=== PATIENT | female | born 1960 | race Caucasian/White ===

== ENCOUNTER 2018-02-06 07:33 | Day surgery (SDC) | payer BC, SELFPAY ==
[2018-02-06 07:52] VITALS: BP 117/79; PULSE 82; RESP 16; TEMP 36; O2SAT 96
[2018-02-06] MEDS: Lactated Ringers 1,000 ML 80 ML IV (07:58)
--- NOTE | 2018-02-06 09:27 | PDOC.DSDIS_ITS ---
Discharge Plan Disposition Patient Disposition: HOME Condition: Good Discharge Details Reason For Visit: Colon Cancer Screening Attending Provider: Bianka Horowitz Primary Care Provider: Dona Coley Home Meds and New Rx's Prescriptions: Continue levothyroxine 150 MCG tablet 150 mcg PO DAILY RF: 0 cholecalciferol (vitamin D3) 50,000 UNIT capsule 50,000 unit PO .WEEKLY RF: 0 estradiol [Vagifem] 10 MCG tablet 10 mcg VG HS twice weekly Qty: 24 RF: 5 Discharge Instructions Instructions: Colonoscopy (DC) Additional Instructions: Findings: Normal colonoscopy Follow up: 10 years Please call if you develop: fevers >101.5 Nausea or Vomiting Abdominal pain that is not transient DAY SURGERY UNIT POST COLONOSCOPY INSTRUCTIONS 1. Because there will be medication in your system for the next 24 hours, you may feel a little sleepy. Your coordination will be affected. Therefore: a. Do not drive or operate dangerous equipment for 24 hours. b. Do not drink alcohol beverages for 24 hours (not even beer). c. Plan to go home and rest for the day. 2. Generally there are no restrictions on your activity after a day or so has gone by, but you may feel a bit fatigued for a few days. 3 After you arrive home you may have a light meal and return to a normal diet as you can tolerate it without feeling sick to your stomach. 4. After surgery, you may feel pain or discomfort. This should be only transient , but if it persists please contact your doctor. 5. If there are any questions regarding the findings of your procedure, please feel free to contact your doctor. 6. If you are unable to contact your doctor with a problem, contact the hospital at [phone]. 7. Continue all your regular medications unless directed otherwise. I understand the above instructions and have no questions. Signature of Patient or Responsible Adult Escort Date/Time Name of Responsible Adult Escort Signature of Nurse Date/Time Activity:: Activity as Tolerated Diet:: As Tolerated DS: Diagnosis Discharge Diagnosis (1) S/P colonoscopy: Status: Acute
--- NOTE | 2018-02-06 09:27 | COLE_ITS ---
Date of service: 02/06/18 Time of Service: : Colonoscopy Report Date of procedure: 02/06/18 Pre-op diagnosis general: Colon Cancer screening Post-op diagnosis procedure note: same Procedure: Colonoscopy Surgeon: Bianka Horowitz Anesthesia proc note operative: MAC (Serina Barahona, INSTRUCTOR ADJUNCT PHARMACY TECHNICIAN / ASA 2) Estimated blood loss (mL): 0 Pathology: none sent Complications: None Disposition: same day Indications: Mrs. River is a pleasant 57 year old female seen in the office for her first screening colonoscopy. Risks, benefits and complications have been reviewed. Complications include but are not limited to bleeding, pain, perforation, missed small lesion/polyp, sore throat, aspiration and adverse reaction to the medications. Questions were entertained and answered to their satisfaction and they wished to proceed. No guarantees were given or implied. Prep: Miralax/Dulcolax Procedure Start Time: 33 Procedure End Time: :51 Retraction Time: 12 minutes Findings: Normal Colon Procedure Description: After informed consent was obtained the patient was taken to the procedure room and placed in a left decubitous position. Monitors were applied and a time out was done. The patients name, date of , procedure, allergies to medications and metal in their body was reviewed. The patient was then sedated. Once sedated and comfortable a rectal exam was done. External exam was normal. Internal exam revealed a normal sphincter tone and no palpable masses. The scope was then introduced and retro-flexed. No internal hemorrhoids were identified. The scope was then advanced to the cecum without difficulty. The TI and appendiceal orifice were identified. The prep was good. The scope was then slowly retracted over 12 minutes back into the rectum. The scope was removed and the patient was woken up and taken back to Same day surgery in stable condition. The patient tolerated the procedure well and there were no immediate complications. Follow up: The patient should follow up in 10 years unless they develop changes in bowel habits or other new gastrointestinal complaints.
[2018-02-06 10:30] VITALS: BP 117/70; PULSE 74; RESP 14; TEMP 36.5; O2SAT 95
== END 2018-02-06 11:00 | disposition home or self-care (01) ==
PROVIDERS: PCP Nurse Practitioner; Visit Provider Surgery
PROC: 0DJD8ZZ Inspection of Lower Intestinal Tract, Via Natural or Artificial Opening Endoscopic (ICD-10-PCS; CPT 45378; principal; 2018-02-06 09:15)
DX: Z12.11 Encounter for screening for malignant neoplasm of colon (principal)
CPT/HCPCS: 45378

== ENCOUNTER 2020-02-06 01:55 | Outpatient (CLI) | payer BC, SELFPAY ==
--- NOTE | 2020-02-06 08:30 | DI.MAMMO_ITS ---
EXAM: MG MAMMO SCREENING CLINICAL HISTORY: screening. TECHNIQUE: Bilateral full field digital CC and MLO mammographic images were obtained with 3D tomosyn thesis and utilizing computer aided detection (CAD). COMPARISON: Prior mammograms dating back to 2014, the most recent being August 2017. FINDINGS: Well-defined benign-appearing nodular density in the upper-outer quadrant of the right breast is unch anged from 2015. Probably benign lymph node. No new right breast findings. In the left breast there is a lateral of center well-defined noncalcified nodule noted which measures 4 x 3 millimeters and is located 6 centimetres in from the nipple on the MLO view.. Less evident on the CC view. This nodule was not evident on the most recent mammogram of August 2017. There is no no architectural distortion or skin thickening-traction IMPRESSION: 1. In the left breast there is a new well-defined noncalcified 4 x 3 millimeter nodule best seen on t he 3D MLO view 6 centimetres in from the nipple. Breast ultrasound recommended to determine if this is solid or cystic. 2. No new right breast findings BI-RADS Category 0 - Assessment Incomplete: Need additional imaging evaluation Breast Density - Category B - Scattered areas of fibroglandular density Breast density Category C or D implies that the patient has dense breast tissue. Dense breast tissue can make it harder to find cancer on a mammogram. Dense breast tissue is also associated with an incr eased risk of breast cancer. This information about the result of the mammogram report was provided to the patient to raise their awareness. Use this report when you speak with the patient about their risks for breast cancer, which includes their family history. At that time, you may recommend additional screening tests (Ultrasoun d or MRI) as these tests may add significant information. A negative radiographic report should not delay biopsy if a dominant or clinically suspicious mass is present. Up to ten percent of cancers are not identified on mammography. A negative report may reinforce clinical impression. Adenosis and dense breasts may obscure an underlying neoplasm. False positive reports average 6 to 10%. Patient will receive a letter notifying them of these results.
== END 2020-02-06 02:15 ==
PROVIDERS: PCP Nurse Practitioner; Visit Provider Nurse Practitioner Family
DX: Z12.31 Encounter for screening mammogram for malignant neoplasm of breast (principal); N63.20 Unspecified lump in the left breast, unspecified quadrant
CPT/HCPCS: 77063; 77067

== ENCOUNTER 2020-02-14 04:17 | Outpatient (CLI) | payer BC, SELFPAY ==
--- NOTE | 2020-02-14 | DI.US_ITS ---
EXAM: US BREAST LT LIMITED CLINICAL HISTORY: F/U MAMMO, LT BREAST NODULE TECHNIQUE: Ultrasound right breast performed using standard protocol. COMPARISON: MG Screening Bilat Mammo from 03/20/2014 MG Screening Bilat Mammo from 09/06/2017 MG MG MAMMO SCREENING from 02/06/2020 FINDINGS: All 4 quadrants of the left breast were evaluated sonographically including the left axilla and retro areolar areas. There is an ovoid hypoechoic 0.4 cm nodule at the 2 o'clock position of the left [address] which appears to correspond to the mammographic abnormality. This likely reflects a benign lesion such as a small fibroadenoma. Mammographically this nodule can be seen on mammograms dating 2014 an 2017 and is unchanged. Note is made of a sonographically benign-appearing lymph node in the left a xilla measuring 0.5 cm. IMPRESSION: No evidence for malignancy. Yearly mammography is recommended. Findings were discussed with the pat ient on the date of the examination BI-RADS Category 2 - Benign Findings DATA REPOSITORY:
== END 2020-02-14 04:37 ==
PROVIDERS: PCP Nurse Practitioner; Visit Provider Nurse Practitioner Family
DX: R92.8 Other abnormal and inconclusive findings on diagnostic imaging of breast (principal)
CPT/HCPCS: 76642

== ENCOUNTER 2020-04-29 04:02 | Outpatient (CLI) | payer BC, SELFPAY ==
[2020-04-29 08:44] LABS: Hemoglobin A1C 5.3 % (<5.7)
[2020-04-29 09:34] LABS: Anion Gap 7.7 mmol/L (3-11); BUN 17 mg/dL (7-18); CO2 28.3 mmol/L (21.0-32.0); CREATININE 0.6 mg/dL (0.55-1.02); Calcium 9.1 mg/dL (8.5-10.1); Calculated LDL 111 mg/dL (<100); Chloride 104 mmol/L (98-107); Cholesterol 190 mg/dL (<200); Glucose 93 mg/dL (74-106); HDL Cholesterol 67 mg/dL (40-60); Potassium 4.2 mmol/L (3.5-5.1); Sodium 140 mmol/L (136-145); TSH 0.18 uIU/mL (0.36-3.74); Triglyceride 62 mg/dL (<150)
[2020-04-30 05:15] LABS: Vitamin D 25 Total 71.7 ng/ml (30-100)
== END 2020-04-29 04:03 | disposition home or self-care (01) ==
LOC: LBO 04:02
PROVIDERS: PCP Nurse Practitioner; Visit Provider Internal Medicine Endocrinology, Diabetes & Metabolism
DX: E06.3 Autoimmune thyroiditis (principal); E55.9 Vitamin D deficiency, unspecified; M85.80 Other specified disorders of bone density and structure, unspecified site
CPT/HCPCS: 36415; 80048; 80061; 82306; 83036; 84443

== ENCOUNTER 2020-07-19 16:53 | Emergency (ER) | payer BC, SELFPAY ==
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
[2020-07-19 16:58] VITALS: BP 128/73; PULSE 81; RESP 16; TEMP 36.4; O2SAT 96
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
[2020-07-19] MEDS: HYDROcodone 5/Acetaminophen 325 TAB PO (17:24)
[2020-07-19] MEDS: Ibuprofen 600 MG TAB PO (17:25)
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
== END 2020-07-19 19:03 | disposition home or self-care (01) ==
PROVIDERS: Emergency Provider Physician Assistant; PCP Nurse Practitioner
DX: S09.90XA Unspecified injury of head, initial encounter (principal); S52.591A Other fractures of lower end of right radius, initial encounter for closed fracture; S01.511A Laceration without foreign body of lip, initial encounter; S01.81XA Laceration without foreign body of other part of head, initial encounter; S80.212A Abrasion, left knee, initial encounter; S60.512A Abrasion of left hand, initial encounter; V18.0XXA Pedal cycle driver injured in noncollision transport accident in nontraffic accident, initial encounter; Y93.55 Activity, bike riding
CPT/HCPCS: 90471; 99281; 73110

== ENCOUNTER 2020-08-04 09:28 | Outpatient (CLI) | payer BC, SELFPAY ==
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
--- NOTE | 2020-08-04 09:15 | DI.RAD_ITS ---
Exam(s) XR FINGER RT LITTLE EXAM: XR FINGER RT LITTLE CLINICAL HISTORY: LITTLE FINGER PAIN. TECHNIQUE: 2D digital imaging was performed. COMPARISON: No exams were available for comparison FINDINGS: BONES: No acute fracture is present. No bony destructive lesion is seen. JOINTS: No dislocation present. SOFT TISSUE: Normal. IMPRESSION: No evidence of acute fracture, dislocation, or subluxation. DATA REPOSITORY: RADIATION DOSE DELIVERED:
== END 2020-08-04 09:29 | disposition home or self-care (01) ==
LOC: DIORS 09:28
PROVIDERS: PCP Nurse Practitioner; Referring Provider Nurse Practitioner; Visit Provider Physician Assistant
DX: M79.644 Pain in right finger(s) (principal); M25.531 Pain in right wrist; S52.591D Other fractures of lower end of right radius, subsequent encounter for closed fracture with routine healing
CPT/HCPCS: 73110; 73140

== ENCOUNTER 2020-09-02 10:26 | Outpatient (CLI) | payer BC, SELFPAY ==
--- NOTE | 2020-09-02 10:00 | DI.RAD_ITS ---
Exam(s) XR WRIST RT COMPLETE EXAM: XR WRIST RT COMPLETE CLINICAL HISTORY: follow up. TECHNIQUE: 2D digital imaging was performed. COMPARISON: CR,XR XR WRIST RT COMPLETE from 07/19/2020 CR,XR XR WRIST RT COMPLETE from 07/19/2020 CR XR WRIST RT COMPLETE from 08/04/2020 FINDINGS: BONES: The lucency on the articular surface of the distal radius is less well visualized than on the prior examinations. No new fracture or dislocation is seen. No bony destructive lesion is seen. JOINTS: The carpal bones are normally aligned. SOFT TISSUE: Normal. IMPRESSION: DATA REPOSITORY: RADIATION DOSE DELIVERED:
== END 2020-09-02 10:27 | disposition home or self-care (01) ==
LOC: DIORS 10:26
PROVIDERS: PCP Nurse Practitioner; Referring Provider Nurse Practitioner; Visit Provider Physician Assistant Surgical
DX: S62.101D Fracture of unspecified carpal bone, right wrist, subsequent encounter for fracture with routine healing (principal); X58.XXXD Exposure to other specified factors, subsequent encounter
CPT/HCPCS: 73110

== ENCOUNTER 2021-02-15 00:28 | Outpatient (CLI) | payer BC, SELFPAY ==
--- NOTE | 2021-02-15 12:30 | DI.MAMMO_ITS ---
Exam(s) MAMMO SCREENING EXAM: MAMMO SCREENING CLINICAL HISTORY: SCREENING FOR BREAST CANCER Z12.39 TECHNIQUE: Mammograms were interpreted according to the usual protocol including computer analysis w [employer] CAD system, tomosynthesis and C-view imaging. COMPARISON: 2014 through 2019 FINDINGS: The breasts are composed of scattered fibroglandular densities, Breast Density category B. No suspicious masses or suspicious microcalcifications are seen. No skin thickening or abnormal axillary lymph nodes are seen. There has been no significant change from prior exams. IMPRESSION: BI-RADS Category 1, Negative mammogram Yearly screening mammography is recommended. Breast Density - Category B, scattered fibroglandular densities. A negative radiographic report should not delay biopsy if a dominant or clinically suspicious mass is present. Up to ten percent of cancers are not identified on mammography. A negative report may reinforce clinical impression. Adenosis and dense breasts may obscure an underlying neoplasm. False positive reports average 6 to 10%. Patient will receive a letter notifying them of these results.
== END 2021-02-15 00:48 ==
PROVIDERS: PCP Nurse Practitioner; Visit Provider Nurse Practitioner Family
DX: Z12.31 Encounter for screening mammogram for malignant neoplasm of breast (principal)
CPT/HCPCS: 77063; 77067

== ENCOUNTER 2024-03-26 01:41 | Outpatient (CLI) | payer BC, SELFPAY ==
--- NOTE | 2024-03-26 | DI.MAMMO_ITS ---
Exam(s) MAMMO SCREENING EXAM: MAMMO SCREENING CLINICAL HISTORY: SCREENING MAMMO Z12.31 TECHNIQUE: Bilateral full field digital CC and MLO mammographic images were obtained with 3D tomosyn thesis and utilizing computer aided detection (CAD). COMPARISON: Available for comparison. FINDINGS: Masses/Architectural Distortion: No suspicious masses or areas of architectural distortion are presen t. Microcalcifications: No suspicious pleomorphic-type are seen. Skin Thickening/Nipple Retraction: None. IMPRESSION: 1. No significant interval change with no specific features of malignancy noted. 2. Unless there is more urgent need, screening mammography is recommended, as per [employer] guidelines. BI-RADS Category 1 - Negative Breast Density - Category B - Scattered areas of fibroglandular density Breast density category C or D implies that the patient has dense breast tissue. Dense breast tissue is very common and is not abnormal but dense breast tissue can make it harder to find cancer on a ma mmogram. Also, dense breast tissue may increase their breast cancer risk. This information about the result of the mammogram report was provided to the patient to raise their awareness. Use this report when you speak with the patient about their risks for breast cancer, which includes their family hist ory. At that time, you may recommend for more screening tests (Ultrasound or MRI) as they might be us eful based on their risk. A negative radiographic report should not delay biopsy if a dominant or clinically suspicious mass is present. Up to ten percent of cancers are not identified on mammography. A negative report may reinforce clinical impression. Adenosis and dense breasts may obscure an underlying neoplasm. False positive reports average 6 to 10%. Patient will receive a letter notifying them of these results.
== END 2024-03-26 02:01 ==
LOC: DI 01:42
PROVIDERS: Visit Provider Physician Assistant
DX: Z12.31 Encounter for screening mammogram for malignant neoplasm of breast (principal); R92.323 Mammographic fibroglandular density, bilateral breasts
CPT/HCPCS: 77063; 77067

== ENCOUNTER 2024-06-20 09:39 | Outpatient (CLI) | payer BC, SELFPAY ==
[2024-06-20 10:41] LABS: Anion Gap 11.5 mmol/L (3-11); BUN 15 mg/dL (7-18); CO2 25.5 mmol/L (21.0-32.0); CREATININE 0.9 mg/dL (0.55-1.02); Calcium 9.1 mg/dL (8.5-10.1); Chloride 106 mmol/L (98-107); Estimated GFR 72.73 (mL/min/1.73m2); Glucose 102 mg/dL (74-106); Potassium 4.2 mmol/L (3.5-5.1); Sodium 143 mmol/L (136-145); TSH (W/Ref FT4) 1.79 uIU/mL (0.36-3.74)
[2024-06-20 11:20] LABS: Vitamin D 25 Total 92 ng/mL (30-100)
== END 2024-06-20 09:40 | disposition home or self-care (01) ==
LOC: LBO 09:41
PROVIDERS: Visit Provider Internal Medicine Endocrinology, Diabetes & Metabolism
DX: E55.9 Vitamin D deficiency, unspecified (principal); E03.9 Hypothyroidism, unspecified; M81.8 Other osteoporosis without current pathological fracture
CPT/HCPCS: 36415; 80048; 82306; 84443

== ENCOUNTER 2024-08-15 01:19 | Outpatient (CLI) | payer BC, SELFPAY ==
--- NOTE | 2024-08-27 10:34 | W.NUTRFU ---
Date of service: 08/15/24 Time of Service: 16:00 Nutrition Note NOTE: Marah referred to nutrition visit for weight mgt - she has been struggling to see progress. Has lost about 12 pounds in the last year but feels it has slowed/stalled. She works for [email or web address] 6 days a week - always on her feet. 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 Developed plantar fasciatis and states this interferes with activity lately. We discussed diet, exercise, sleep and stress mgt all help with wt mgt...she relates poor sleep and high stress, no consistent targeted exercise but does stay active at baseline. Has hx of Hashimotos and was at [facility] this last May and told thyroid levels are fine. She experiences intolerance to lactose. She avoids juices and sodas and other SSB's but finds drinking water difficult -> describes heart burn sx's when drinking water. Marah may skip breakfast frequently or have a meat stick with pistachios and cheese. Lunch is skipped ~1/2 the week or will have salad with chicken. likes to eat late sometimes 8:30 or 9pm. Initial assessment: inconsistent eating pattern/later meals/snacks could be contributing to her weight loss plateau. Although added sugar intake appears to be less concerning, intake of fiber and protein are often lower than optimal with frequent skipping. Reviewed menu planning resources and how to have it give sample menus based on the following initial energy and macro suggestions: 1500kcals, 150g total carbs, 112g protein, 50g total fat. Also minimum goal of 30g fiber and limit added sugar to 15 g. Marah encouraged to eat breakfast with minimum 30g protein soon after waking.avoid skipping and try to cut off earlier (no later than 7pm ideally) to fast without snacking/grazing after eating - if eating after 8pm the meal should be protein and non-starchy veggie based. Will remain available for follow up questions or appointments if desired. Time Spent in Nutritional Counseling and Treatment: 25 min
== END 2024-08-15 01:20 | disposition home or self-care (01) ==
PROVIDERS: Visit Provider Dietitian, Registered
DX: R63.5 Abnormal weight gain (principal)
CPT/HCPCS: 00123; 97802